=== PATIENT | male | born 1950 | race Caucasian/White ===

== ENCOUNTER 2017-08-21 12:34 | Inpatient (IN) | payer OTHER ==
[~2017-08-21] VITALS: Ht 167.6 cm; Wt 94.5 kg
[2017-08-21 12:49] LABS: BASOPHIL (%) 0.5 % (0-1); BASOPHIL COUNT 0.1 K/uL (0-0.1); EOSINOPHIL (%) 1.2 % (0-5); EOSINOPHIL COUNT 0.1 K/uL (0-0.3); HEMATOCRIT 44.6 % (38.0-50.0); HEMOGLOBIN 15.8 G/DL (12.5-16.6); IMMATURE GRANULOCYTE (%) 0.9 % (0.0-0.7); LYMPHOCYTE (%) 42.4 % (15-42); LYMPHOCYTE COUNT 4.9 K/uL (1.0-2.8); MCH 32.8 PG (29.0-34.0); MCHC 35.4 G/DL (30.0-36.0); MCV 92.5 FL (86-99); MONOCYTE (%) 9.3 % (3-12); MONOCYTE COUNT 1.1 K/uL (0-0.8); NEUTROPHIL (%) 45.7 % (45-76); NEUTROPHIL COUNT 5.3 K/uL (1.8-6.4); PLATELET COUNT 224 K/uL (156-360); RBC DIS.WIDTH-CV 12.5 % (11.8-14.6); RBC DIS.WIDTH-SD 42.5 % (39-53); RED BLOOD COUNT 4.82 M/uL (4.00-5.50); WHITE BLOOD COUNT 11.6 K/uL (4.1-10.2)
[2017-08-21 13:02] LABS: AMYLASE 71 IU/L (1-118); CHLORIDE 102 mEq/L (99-109); POTASSIUM 4.7 mEq/L (3.7-5.4); SODIUM 137 mEq/L (136-147)
[2017-08-21 13:04] LABS: GLUCOSE 127 mg/dL (70-99)
[2017-08-21 13:07] LABS: SERUM ETHYL ALCOHOL < 10 mg/dL
[2017-08-21 13:08] LABS: CREATININE 1.5 mg/dL (0.6-1.3); GFR ESTIMATE (CALCULATED) 49 mL/min/ (58.99-99999)
[2017-08-21 13:09] LABS: UREA NITROGEN (BUN) 28 mg/dL (9-23)
[2017-08-21 13:11] LABS: LIPASE 32 U/L (1.0-51.0)
[2017-08-21] MEDS ORDERED: PERCOCET 5/31 TABLET PO (15:11)
[2017-08-21] MEDS ORDERED: AMLODIPINE BESY10 MG PO (16:01)
[2017-08-21] MEDS ORDERED: VITAMIN D22000 UNIT PO (16:01)
[2017-08-21] MEDS ORDERED: METFORMIN HCL500 MG PO (16:01)
[2017-08-21] MEDS ORDERED: [UNRECOGNIZED DRUG - OTHER] PO (16:02)
[2017-08-21] MEDS ORDERED: CLARITIN,ALAVAR10 MG PO (16:02)
[2017-08-21] MEDS ORDERED: NASACORT10.8 ML BOTH NARES (16:03)
[2017-08-21] MEDS ORDERED: BENAZEPRIL HCL20 MG PO (16:03)
[2017-08-21 16:08] LABS: APPEARANCE CLEAR ((CLEAR)); BILIRUBIN NEGATIVE; BLOOD NEGATIVE; COLOR YELLOW ((YELLOW)); GLUCOSE (STRIP) NEGATIVE; KETONES 20; LEUKOCYTES NEGATIVE; NITRITE NEGATIVE; PROTEIN (STRIP) NEGATIVE; UCUL ADDED? NO; UROBILINOGEN 0.2 MG/DL (0.2-1.0)
[2017-08-21 16:18] LABS: TROP-I INTERPRETATION NEGATIVE; TROPONIN-I < 0.01 ng/mL (0.0-0.30)
[2017-08-21 16:25] LABS: AMPHETAMINE NEGATIVE (500 ng/mL); BARBITURATES NEGATIVE (200 ng/mL); BENZODIAZEPINES NEGATIVE (150 ng/mL); BUPRENORPHINE NEGATIVE (10 ng/mL); COCAINE NEGATIVE (150 ng/mL); METHADONE NEGATIVE (200 ng/mL); METHAMPHETAMINE NEGATIVE (500 ng/mL); OPIATES (MORPHINE) NEGATIVE (100 ng/mL); OXYCODONE NEGATIVE (100 ng/mL); PHENCYCLIDINE NEGATIVE (25 ng/mL); PROPOXYPHENE NEGATIVE (300 ng/mL); THC CANNABINOIDS NEGATIVE (50 ng/mL); TRICYCLIC ANTIDEPRESSANTS NEGATIVE (300 ng/mL)
[2017-08-21 16:26] LABS: SPECIFIC GRAVITY 1.062 (1.000-1.030)
[2017-08-21 19:38] VITALS: BP 143/71
[2017-08-21 23:28] VITALS: BP 138/71
[2017-08-22 06:11] LABS: HEMATOCRIT 40.7 % (38.0-50.0); HEMOGLOBIN 13.9 G/DL (12.5-16.6); MCH 31.4 PG (29.0-34.0); MCHC 34.2 G/DL (30.0-36.0); MCV 91.9 FL (86-99); PLATELET COUNT 187 K/uL (156-360); RBC DIS.WIDTH-CV 12.6 % (11.8-14.6); RBC DIS.WIDTH-SD 42.5 % (39-53); RED BLOOD COUNT 4.43 M/uL (4.00-5.50); WHITE BLOOD COUNT 11.5 K/uL (4.1-10.2)
[2017-08-22 06:27] LABS: ALBUMIN 3.3 G/DL (3.2-4.8); ALKALINE PHOSPHATASE 43 IU/L (3-129); ALT (GPT) 15 IU/L (3-49); AST (GOT) 14 IU/L (2-34); CHLORIDE 101 MEQ/L (99-109); GLUCOSE 121 mg/dL (70-99); POTASSIUM 4.7 MEQ/L (3.7-5.4); SODIUM 134 MEQ/L (136-147); TOTAL BILIRUBIN 0.7 MG/DL (0.0-1.0); TOTAL PROTEIN 6.6 G/DL (6.4-8.3); UREA NITROGEN (BUN) 17 mg/dL (9-23)
[2017-08-22 06:36] LABS: CREATININE 0.9 MG/DL (0.6-1.3); GFR ESTIMATE (CALCULATED) > 59 mL/min/ (58.99-99999)
[2017-08-22 08:14] VITALS: BP 149/71
[2017-08-22 12:00] VITALS: BP 144/70
[2017-08-22 15:37] VITALS: BP 149/65
[2017-08-22 20:58] VITALS: BP 141/71
[2017-08-23 01:18] VITALS: BP 149/68
[2017-08-23 04:09] VITALS: BP 170/65
[2017-08-23 06:13] LABS: HEMATOCRIT 40.2 % (38.0-50.0); MCHC 34.8 G/DL (30.0-36.0); MCV 91.8 FL (86-99); PLATELET COUNT 185 K/uL (156-360); RBC DIS.WIDTH-CV 12.5 % (11.8-14.6); RBC DIS.WIDTH-SD 42.1 % (39-53); RED BLOOD COUNT 4.38 M/uL (4.00-5.50); WHITE BLOOD COUNT 9.9 K/uL (4.1-10.2)
[2017-08-23 06:34] LABS: CHLORIDE 101 MEQ/L (99-109); GFR ESTIMATE (CALCULATED) > 59 mL/min/ (58.99-99999); GLUCOSE 142 mg/dL (70-99); POTASSIUM 4.3 MEQ/L (3.7-5.4); SODIUM 134 MEQ/L (136-147); UREA NITROGEN (BUN) 16 mg/dL (9-23)
[2017-08-23 07:30] VITALS: BP 153/80
[2017-08-23] MEDS ORDERED: TRAMADOL HCL50 MG PO (09:55)
[2017-08-23 11:20] VITALS: BP 140/77
== END 2017-08-23 13:21 | disposition home or self-care (01) | DRG 184 ==
LOC: TRA 12:34 → EDOF 16:59 → ENRESERV 17:07 → 3EAST 19:27
PROVIDERS: Emergency Medicine; Physician Assistant Surgical; Student in an Organized Health Care Education/Training Program
DX: S22.20XA Unspecified fracture of sternum, initial encounter for closed fracture (principal); S22.43XA Multiple fractures of ribs, bilateral, initial encounter for closed fracture; G89.11 Acute pain due to trauma; R09.02 Hypoxemia; I10 Essential (primary) hypertension; V43.52XA Car driver injured in collision with other type car in traffic accident, initial encounter; E11.9 Type 2 diabetes mellitus without complications; R55 Syncope and collapse
CPT/HCPCS: 70450; 71046; 71260; 72125; 72129; 72132; 74177; 80048; 80053; 81003; 82150; 82948; 83690; 84484; 85025; 85027; 86850; 86900; 86901; 93005; 94799; 99281; 99285; G0480; J1170; J7030; J7120